=== PATIENT | male | born 1985 | race Hispanic/Latino ===

== ENCOUNTER 2024-03-24 14:34 | Emergency (ER) | payer SELFPAY ==
[2024-03-24] MEDS ORDERED: Ibuprofen 200 MG TAB ONE (16:20)
== END 2024-03-24 17:49 | disposition home or self-care (01) ==
LOC: ERS 14:34
DX: S93.402A Sprain of unspecified ligament of left ankle, initial encounter (principal); F17.290 Nicotine dependence, other tobacco product, uncomplicated; W21.02XA Struck by soccer ball, initial encounter; Y93.66 Activity, soccer
CPT/HCPCS: 99283